=== PATIENT | female | born 2000 | race Hispanic/Latino ===

== ENCOUNTER 2018-03-19 18:16 | Day surgery (SDC) | payer MEDICAID, OTHER ==
[2018-03-19 18:41] LABS: Bilirubin Negative (Negative); Blood, Urine Negative (Negative); Clarity CLOUDY (Clear); Glucose, Urine (Dipstick) Negative (Negative); Leukocyte Negative (Negative); Nitrite Negative (Negative); Protein, Urine (Dipstick) Negative (Neg-Trace)
[2018-03-19 18:48] LABS: Specific Gravity, Urine 1.003 (1.002-1.036)
[2018-03-19 18:54] LABS: #Lymphocytes 0.6 thou/uL (1.20-3.40); #Monocytes 0.4 thou/uL (0.11-0.59); #Neutrophils 5.3 thou/uL (1.40-6.50); %Eosinophils 0.3 % (0.0-10.0); %Monocytes 5.7 % (0.0-4.0); %Neutrophils 85.1 % (31.0-61.0); Hemoglobin 11.7 g/dL (12.0-16.0); Mean Corpuscular HGB CONC 35.8 g/dL (32.0-36.0); Mean Corpuscular Hemoglobin 33.1 pg (25.0-35.0); Mean Corpuscular Volume 92.4 fL (78.0-98.0); Mean Platelet Volume 6.1 fL (7.4-10.4); Platelet Count 170 thou/uL (130-400); RBC Distribution Width 11.9 % (11.5-14.5); Red Blood Cell (RBC) Count 3.53 mill/uL (4.00-5.20); White Blood Cell (WBC) Count 6.2 thou/uL (4.8-10.8)
[2018-03-19 19:12] LABS: ALT (SGPT) 15 U/L (8-55); AST (SGOT) 26 U/L (5-34); Albumin 3.5 g/dL (3.5-5.0); Alkaline Phosphatase 95 U/L (40-150); Anion Gap 11 mmol/L (10-20); BUN (Urea Nitrogen) 4 mg/dL (7.0-18.7); Bilirubin, Total 0.9 mg/dL (0.2-1.2); Calc. Creatinine Clearance 0 mL/min (70-130); Calcium 9.4 mg/dL (7.8-10.44); Carbon Dioxide 23 mmol/L (22-29); Chloride 103 mmol/L (98-107); Estimated GFR-MDRD Greater than 90; Globulin 2.9 g/dL (2.4-3.5); Glucose 108 mg/dL (70-105); Lipase 17 U/L (8-78); Potassium 3.5 mmol/L (3.5-5.1); Protein, Total 6.4 g/dL (6.0-8.3); Sodium 133 mmol/L (136-145)
[2018-03-19 20:43] VITALS: BP 116/65; TEMP 101.8; BMI 23.1
[2018-03-19 22:30] LABS: FFN Internal QC Analyzer PASS (PASS); FFN Internal QC Cassette PASS (PASS); Fetal Fibronectin Negative (Negative)
[2018-03-19] MEDS ORDERED: Acetaminophen 325 MG TAB PO SCH (23:00)
--- NOTE | 2018-03-20 01:58 | PDOC.EVN ---
Addendum entered and electronically signed by Jessi Beaver MD 03/20/18 02:09: Agree with note below. Patient tolerated entire meal and was feeling much better and we will plan for close follow-up in clinic. Return precautions given. Original Note: Event Note - Event Note Event Note: Patient cervix rechecked at midnight, remained closed (closed/thick/high). NSTs were reassuring. Mom had eaten and was feeling better. Pt sent home with marley and will follow up with PCP (Dr. Kelly Zaidi) on Monday. Patient was discharged. <Hailey Lema - Last Filed: 03/20/18 01:55> - Event Note Event Note: Patient stable. Asymptomatic. Maternal vitals reviewed. FHT reassuring and reactive. No contractions. No evidence of labor. Received 2L. Tolerated meal. Follow up with PCP on Monday with Dr. Zaidi. Dominick <Lexie Méndez - Last Filed: 03/20/18 02:12>
== END 2018-03-20 00:30 | disposition home health service (06) ==
LOC: ERS 18:16 → L&D/OP 20:01
PROVIDERS: ATTEND Family Medicine
DX: O99.89 Other specified diseases and conditions complicating pregnancy, childbirth and the puerperium (principal); R19.7 Diarrhea, unspecified; R50.9 Fever, unspecified; R11.10 Vomiting, unspecified; Z3A.32 32 weeks gestation of pregnancy
CPT/HCPCS: 36415; 80053; 81003; 82731; 83630; 83690; 85025; 87045; 87046; 87081; 87449; 87899; 96360; 96361; 99283; 99284

== ENCOUNTER 2018-03-20 19:18 | Observation (INO) | payer OTHER ==
[2018-03-20 20:07] VITALS: BMI 23.6
[2018-03-20] MEDS ORDERED: Ondansetron HCl/PF 4 MG/2 ML Vial IVP PRN (20:12)
[2018-03-20] MEDS ORDERED: Acetaminophen 325 MG TAB PO PRN (20:12)
[2018-03-20] MEDS: Lactated Ringer's 1,000 ML IV SCH ×2 (20:29→21:04)
[2018-03-20] MEDS ORDERED: Acetaminophen 500 MG TAB PO SCH (20:30)
[2018-03-20 20:58] LABS: Bilirubin Negative (Negative); Blood, Urine Negative (Negative); Clarity CLEAR (Clear); Glucose, Urine (Dipstick) 100 mg/dL (Negative); Leukocyte Negative (Negative); Nitrite Negative (Negative); Protein, Urine (Dipstick) Negative (Neg-Trace); Specific Gravity, Urine 1.004 (1.002-1.036)
[2018-03-20 20:59] LABS: Bacteria/HPF None Seen HPF (None Seen); Hyaline Casts/LPF 0-3 HYALINE CAST LPF (0-3 Hyaline); RBC/HPF None Seen HPF (0-3); Squamous Epithelial 0-3 HPF (0-3); WBC/HPF None Seen HPF (0-3)
[2018-03-20 21:08] LABS: ALT (SGPT) 20 U/L (8-55); AST (SGOT) 33 U/L (5-34); Albumin 3.3 g/dL (3.5-5.0); Alkaline Phosphatase 92 U/L (40-150); Anion Gap 11 mmol/L (10-20); BUN (Urea Nitrogen) Less than 4 mg/dL (7.0-18.7); Bilirubin, Total 0.6 mg/dL (0.2-1.2); Calc. Creatinine Clearance 156 mL/min (70-130); Calcium 8.8 mg/dL (7.8-10.44); Carbon Dioxide 22 mmol/L (22-29); Chloride 107 mmol/L (98-107); Estimated GFR-MDRD Greater than 90; Globulin 2.3 g/dL (2.4-3.5); Glucose 94 mg/dL (70-105); Potassium 3.3 mmol/L (3.5-5.1); Protein, Total 5.6 g/dL (6.0-8.3); Sodium 137 mmol/L (136-145)
[2018-03-20] MEDS ORDERED: Lactated Ringer's 1,000 ML IV SCH ×2 (22:15)
--- NOTE | 2018-03-21 01:35 | PDOC.EVN ---
Event Note - Event Note Event Note: Mom is resting comfortably. Fever resolved, temperature now 97.8F. Maternal heart rate improved, now ranging from 102-108. FHR improved to 120s. Cat 1 tracing. On Maintenance fluids. Continuous FHTs reduced to intermittent monitoring. FHTs show baseline 120s, moderate variability, good accelerations, no decelerations. Cat 1 tracing. Vitals: T 97.8, BP 94/52, R 18, O2 100% on RA Labs K: 3.3 Ma.5 TSH: .9259 EKG: sinus tachycardia A&P: Viral vs Bacterial Gastroenteritis -Fever resolved to 97.8F with tylenol -Supportive therapy: currently on maintenance fluids LR @125 ml/hr -Regular Diet as tolerated -Final results of stool studies pending -Negative for shigella and campylobacter -Zofran PRN for nausea -Lactic acid ordered for morning labs -Morning BMP Hypokalemia -K: 3.3 -replace with KCl 20 mg PO bid Hypomagnesemia -ma.5 -replace with slow MagCl 64 mg PO bid Maternal Tachycardia - improved -HR in 120s, improved to 102-108. -EKG ordered- showed sinus tachycardia Tachycardia- resolved -FHR in 165 upon presentation, likely related to maternal gastroenteritis -Resolved with fluid resuscitation to Cat 1 tracing -Continuous FHTs reduced to intermittent monitoring R/o Labor -32wk 4d by 8.5 week US and LMP -intermittent nonpainful contractions - fibronectin negative (03/19/18) -(on 03/19/18 @ 2400) Cervix closed (closed/thick/high) sIUP @ 32.4 wks, MURRAY 05/12/18 -OB labs reviewed and within nl limits, apart from chlamydia earlier in (s/p LASHAWN) -continue iron for anemia of -obs <Hailey Lema - Last Filed: 03/21/18 02:23> Attending Addendum - Attending Addendum Date/Time: 03/20/18 7781 I personally evaluated the patient and discussed the management with Dr. Lema I agree with the History, Examination, Assessment and Plan documented above with any addition or exceptions noted below. ABrayMD <Lexie Méndez - Last Filed: 03/21/18 06:37>
--- NOTE | 2018-03-21 05:33 | PDOC.LDPN ---
Labor & Delivery Progress Note - Subjective Subjective: comfortable, no concerns, other (NAEO. Patient says she had one episode of diarrhea early this AM and was able to sleep through the night. Denies seeing any blood or mucus in her stool. Also denies any fever/chills, nausea or vomiting. Is tolerating water PO but still does not have much of an appetite.) - Objective Vital signs reviewed and normal: yes General: NAD (CV: tachycardiac w/ regular rate, no murmurs; respiratory: LCTAB; Abdomen: Gravid, nontender) Uterine fundus: non tender FHT: category 1, variability present Resuscitative measures: maternal IV fluids (LR @ 125mL/hr) -: A&P: 18YO @ 32.4 weeks who presented from clinic due to tachycardia & diarrhea x 1 day 2/2 viral vs. bacterial gastroenteritis. 1. Viral vs. bacterial gastroenteritis: - Still having episodes of diarrhea, less frequent though. - Will continue IV maintenance fluids w/ LR @ 125mL/hr & encourage PO hydration & regular diet as tolerated. - Stool studies neg for shigella or campylobacter, & prelim Cx neg. - Elevated fecal lactoferrin, E. coli ordered but not done. Will consider reordering this test. - Fever has resolved w/ tylenol, last recorded temp was 98.0F 2. Hypokalemia: - K of 3.3 on admission likely 2/2 GI losses from diarrhea - Repeat BMP at 0330 today still low @ 3.1 - Will start on oral replacement with PO KCl @ 40mEq with breakfast & lunch. - Will continue to monitor. 3. Hypomagnesemia: - Mg of 1.5 on presentation - Was given one dose of 64mg Mg PO but will start on IV Mg as patient is still having diarrhea. - Will continue to monitor. 4. Maternal tachycardia - slightly improved from admission - HR between 97 and 109 overnight - Will continue with IVFs and encourage increased PO intake as tolerated - Will continue to monitor 5. tachycardia - Resolved following maternal fluid resuscitation. - Will continue with intermittent monitoring with as last documented FHT was reassuring with baseline in 120s, moderate variability, good accels & no decels. 6. r/o labor - FFN neg on 03/19/18 - Cervix was closed, thick & high on 03/19/18 @ 2400 7. SIUP @ 32.4 weeks - h/o chlamydia in early that is s/p tx; all other labs were WNL - Will continue iron for anemia of <Aurora Bagley - Last Filed: 03/21/18 08:40> Attending Addendum - Attending Addendum Date/Time: 03/21/18 3924 I personally evaluated the patient and discussed the management with Dr. Bagley I agree with the History, Examination, Assessment and Plan documented above with any addition or exceptions noted below- Patient feeling better. No further N/V. One episode of diarrhea last night but overall much improved. Feels hungry. Afebrile VSS. A/P: 1) Gastroenteritis- improved. Will have patient eat breakfast and if tolerated meal, plan to d/c home. 2) Hypokalemia - potassium replaced today. Anticipate improvement once tolerating po. <Mariana Velasquez - Last Filed: 03/21/18 17:44>
[2018-03-21 05:52] LABS: Lactic Acid 0.6 mmol/L (0.5-2.2)
[2018-03-21 05:58] LABS: Anion Gap 6 mmol/L (10-20); BUN (Urea Nitrogen) Less than 4 mg/dL (7.0-18.7); Calc. Creatinine Clearance 150 mL/min (70-130); Calcium 8.4 mg/dL (7.8-10.44); Carbon Dioxide 26 mmol/L (22-29); Chloride 109 mmol/L (98-107); Estimated GFR-MDRD Greater than 90; Glucose 75 mg/dL (70-105); Potassium 3.1 mmol/L (3.5-5.1); Sodium 138 mmol/L (136-145)
[2018-03-21] MEDS ORDERED: Magnesium Chloride 64 MG TAB PO SCH (07:00)
[2018-03-21] MEDS ORDERED: Potassium Chloride 20 MEQ TAB PO SCH ×3 (08:00→12:00)
[2018-03-21] MEDS ORDERED: Magnesium 2 GM/NS 0.9% 50 ML 2 GM in Premix Bag 1 BAG IVPB SCH (08:45)
[2018-03-21] MEDS ORDERED: Magnesium Sulfate 2 GM in Sodium Chloride 0.9% 100 ML IVPB SCH (09:00)
[2018-03-21 14:51] VITALS: TEMP 98.2
--- NOTE | 2018-03-21 15:27 | EKG ---
Test Reason : Blood Pressure : / mmHG Vent. Rate : 117 BPM Atrial Rate : 117 BPM P-R Int : 152 ms QRS Dur : 086 ms QT Int : 312 ms P-R-T Axes : 031 042 017 degrees QTc Int : 435 ms Sinus tachycardia Otherwise normal ECG Confirmed by JADE SHARIF ([id number]) on 03/21/2018 3:27:25 PM Referred By: esau COTA Confirmed By:JADE SHARIF
[2018-03-21 15:38] VITALS: BP 92/62
--- NOTE | 2018-03-22 11:50 | DIS-2 ---
DATE OF ADMISSION: 03/20/2018 DATE OF DISCHARGE: 03/21/2018 RESIDENT: Aurora Bagley MD ADMITTING ATTENDING: Dr. Lexie Méndez. DISCHARGE ATTENDING: Dr. Mariana Velasquez. CONSULTATIONS: None. PROCEDURES: None. PRIMARY DIAGNOSES: 1. Gastroenteritis. 2. Dehydration during . 3. Hypokalemia. 4. Hypomagnesemia. 5. tachycardia. 6. Fever SECONDARY DIAGNOSES: . DISCHARGE MEDICATIONS: 1. vitamins. 2. Ondansetron HCL 4 mg p.o. q.4. hours p.r.n. #10. DISCONTINUED MEDICATIONS: None. HOSPITAL COURSE: Ms. Desouza is a 18-year-old G2, P0-0-1-0 at 32.3 weeks, who was sent over from clinic after being found to be tachycardic with a heart rate in the 140s with a heart rate in the 160-170 range. The tachycardia began after 3 days of fever, nausea, decreased PO intake, and watery diarrhea so the patient was sent to the hospital to be evaluated and treated for dehydration 2/ 2 gastroenteritis. On admission, the patient was found to have a low-grade temperature of 100.0F and was tachycardic with a HR of 120. She was given 1 liter of lactated Ringer's for volume resuscitation & started on LR at 125mL/ hr. After receiving adequate fluid resuscitation, the tachycardia resolved and an NST was reassuring with a baseline heart rate in the 120s with moderate variability, good accelerations and no decelerations. Significant labs on presentation included a K of 3.3 and a Mg of 1.5. Both were treated with 40 mEq of potassium PO and 64 mg of magnesium PO, respectively, prior to discharge. By the morning of discharge after being kept on IVFs overnight, the patient's fever and tachycardia resolved and she was able to tolerate food and liquids by mouth. After observing her for a few hours that morning she was cleared for discharge and instructed to follow up with her primary care physician within 1-2 days following discharge. DISPOSITION: Stable. DISCHARGE INSTRUCTIONS: 1. Location: Home. 2. Diet: Regular diet as tolerated. 3. Activity: As tolerated. No restrictions. 4. Followup: The patient was instructed to follow up with her primary care physician in clinic within 1-2 days following discharge. FRANCISCA
== END 2018-03-21 14:31 | disposition home health service (06) ==
LOC: L&D/OP 19:18 → L&D 20:14
PROVIDERS: ADMIT Student in an Organized Health Care Education/Training Program; ATTEND Student in an Organized Health Care Education/Training Program
DX: O99.613 Diseases of the digestive system complicating pregnancy, third trimester (principal); K52.9 Noninfective gastroenteritis and colitis, unspecified; O99.283 Endocrine, nutritional and metabolic diseases complicating pregnancy, third trimester; E83.42 Hypomagnesemia; O76 Abnormality in fetal heart rate and rhythm complicating labor and delivery; E86.0 Dehydration; E87.6 Hypokalemia; Z3A.32 32 weeks gestation of pregnancy
CPT/HCPCS: 36415; 51701; 80048; 80053; 81001; 83605; 83735; 84443; 93005; 93010; 96360; 96361; 99285; G0378; J3475; J7050

== ENCOUNTER 2018-05-16 03:46 | Inpatient (IN) | payer OTHER ==
[2018-05-16 04:10] VITALS: BMI 27.0
--- NOTE | 2018-05-16 05:15 | PDOC.FPROB ---
FMR OB H&P: HPI - History of Present Illness Chief Complaint: contractions History of Present Illness: 18 yo at 40.4w by LMP/8.5w sono here with cc of ctx since 0100. They were initially q10 min and are now q5. She is feeling baby move. Denies VB, LOF , discharge, dysuria. Primary Care Physician: Kelly Zaidi MD FMR OB H&P: Current - Care : 2 Para: 0 Gestational age: 40.4 Due date: 05/12/2018 Dating Criteria: LMP/8.5w sono Course/Complications: Anemia of , chlamydia s/p LASHAWN - OB Labs Blood type: O RH: positive Antibody Screen: negative HIV: negative RPR: negative HepBsAg: negative Rubella: immune Urine drug screen: negative Gonorrhea: negative Chlamydia: positive (LASHAWN negative) Pap Smear: not indicated 1 hour gtt: 72 GBS: negative - First Trimester Ultrasound First trimester: 8.5w - Anatomy Survey Anatomy survey: WNL, posterior placenta, outflow tracts not visualized FMR OB H&P: History - Past Medical History PMH: Anemia of Chlamydia s/p LASHAWN - OB History OB History: H/o SAB at 6 weeks - Surgical History Sx History: Appendectomy - Social History Social History: Denies tobacco, alcohol, drug use - Family History Family History: Dad: T2DM, HTN FMR OB H&P: Medications - Current Home Medications: Medication Instructions Recorded Confirmed Type Vitamin 1 tab DAILY 03/19/18 05/16/18 History Acetaminophen [Acetaminophen Oral 2.5 ml PO PRN PRN 03/20/18 05/16/18 History Solution] Ferrous Sulfate 1 tab PO DAILY 03/20/18 05/16/18 History Ondansetron HCl [Zofran] 4 mg PO Q4H PRN #10 tablet 03/21/18 05/16/18 Rx Allergies/Adverse Reactions: Allergies Allergy/AdvReac Type Severity Reaction Status Date / Time No Known Allergies Allergy Verified 03/20/18 20:01 FMR OB H&P: ROS - Review of Systems General: denies: fever/chills Eyes: denies: vision changes ENT: denies: nasal congestion, rhinorrhea Cardiovascular: denies: chest pain, palpitation Respiratory: denies: cough, congestion, shortness of breath Gastrointestinal: reports: abdominal pain, cramping Genitourinary (Female): denies: dysuria, hematuria Musculoskeletal: denies: pain, tenderness FMR OB H&P: Vital Signs - Maternal Vital signs: Vital Signs - First Documented Temp Pulse Resp BP 98.3 F 102 H 18 117/70 05/16/18 04:06 05/16/18 04:06 05/16/18 04:06 05/16/18 04:06 - Heart Tones Baseline: 125 Variability: moderate Acceleration: present Deceleration: absent Category: category 1 [place] contractions every: 2-4 minutes FMR OB H&P: Physical Exam - Physical Exam General: NAD, awake, alert and oriented HEENT: normocephalic and atraumatic Neck: supple Chest: non-tender to palpation Heart: RRR, normal S1/S2 General: CTAB Abdomen: soft, gravid, non-tender Skin: good tugor, capillary refill <2 seconds Psychiatric: intact recent and remote memory, normal mood and affect - Pelvic Exam Vulva: no masses SVE: 4/80/-2 Guthrie score: 8 Membranes: intact Presentation: vertex Estimated Weight: 7 lbs FMR OB H&P: A/P - Problem List (1) Term Current Visit: Yes Status: Acute Code(s): Z34.80 - ENCOUNTER FOR SUPRVSN OF NORMAL , UNSP TRIMESTER Disposition: 18 yo at 40.4w by LMP/8.5w sono here with contractions 1. sIUP, latent labor - Cervical change since yesterday - Latent labor at this time - Will recheck in 1 hour and if making cervical change, admit to L&D for expectant mgmt - Does not desire epidural but does desire IV pain medications 2. Anemia of - Last Hgb > 10 - On iron - Will check CBC on admission 3. Chlamydia in - s/p LASHAWN Will recheck in 1 hour Attending Addendum - Attending Addendum Date/Time: 05/16/18 0703 I personally evaluated the patient and discussed the management with Dr. Beaver. I agree with the History, Examination, Assessment and Plan documented above with any addition or exceptions noted below.
[2018-05-16] MEDS ORDERED: Ondansetron HCl/PF 4 MG/2 ML Vial IVP PRN ×2 (06:16→16:43)
[2018-05-16] MEDS ORDERED: Fentanyl 100 MCG/2 ML VIAL SLOW IVP PRN (06:16)
[2018-05-16] MEDS ORDERED: Promethazine HCl 25 MG/ML VIAL IM PRN (06:16)
--- NOTE | 2018-05-16 06:16 | PDOC.LDPN ---
Labor & Delivery Progress Note - Subjective Subjective: painful contractions - Objective Vital signs reviewed and normal: yes General: resting Uterine fundus: non tender Dilation: 5 Effacement: 90% Station: -2 [place] contractions every: 2-4 minutes - Assessment (1) Term Code(s): Z34.80 - ENCOUNTER FOR SUPRVSN OF NORMAL , UNSP TRIMESTER Current Visit: Yes Status: Acute -: Making cervical change. Will admit to L&D for expectant management.
[2018-05-16] MEDS: Lactated Ringer's 1,000 ML IV SCH ×2 (06:30→16:49)
[2018-05-16] MEDS ORDERED: Lactated Ringer's 1,000 ML IV SCH ×2 (06:30→13:30)
[2018-05-16] MEDS ORDERED: Lidocaine 1% (PF) 30 ML VIAL SC PRN (06:45)
[2018-05-16] MEDS ORDERED: NS / Oxytocin 40 units/1000ml 1,000 ML IV PRN (06:45)
[2018-05-16] MEDS: Butorphanol Tartrate 1 MG/ML VIAL SLOW IVP PRN ×3 (07:10→13:29)
[2018-05-16 07:33] LABS: Hemoglobin 13.1 g/dL (12.0-16.0); Mean Corpuscular HGB CONC 35.4 g/dL (32.0-36.0); Mean Corpuscular Hemoglobin 32.7 pg (25.0-35.0); Mean Corpuscular Volume 92.6 fL (78.0-98.0); Mean Platelet Volume 7.1 fL (7.4-10.4); Platelet Count 281 thou/uL (130-400); RBC Distribution Width 12.4 % (11.5-14.5); Red Blood Cell (RBC) Count 4.01 mill/uL (4.00-5.20); White Blood Cell (WBC) Count 12.7 thou/uL (4.8-10.8)
[2018-05-16 07:50] LABS: HBSAg Index 0.26 S/CO (0-0.99); Hep B Surf Ag Non-Reactive S/CO (NonReactive)
--- NOTE | 2018-05-16 08:19 | PDOC.LDPN ---
Labor & Delivery Progress Note - Subjective Subjective: comfortable, no concerns - Objective Vital signs reviewed and normal: yes General: NAD, resting, breathing through contractions Uterine fundus: non tender Dilation: 5 Effacement: 90% Station: 0 FHT: category 1, variability present [place] contractions every: every 3-6 min Resuscitative measures: maternal IV fluids - Assessment (1) Term Code(s): Z34.80 - ENCOUNTER FOR SUPRVSN OF NORMAL , UNSP TRIMESTER Current Visit: Yes Status: Acute (2) Anemia affecting Code(s): O99.019 - ANEMIA COMPLICATING , UNSPECIFIED TRIMESTER Current Visit: Yes Status: Acute Plan: continue plan of care -: This is a 18 yo at 40.4 wks by LMP/8.5w sono here with cc of ctx since 0100 found to be in labor. Term IUP - check @ 0815 is /0; will recheck in about 2 hours - CTX every 3-6min - Pt does not desire epidural at this time; stadol X 1 for pain - Will continue to monitor FHT - continue plan of care - Will consider AROM at next check if still intact Anemia of - Last Hgb > 10 - On iron - Will check CBC Chlamydia in - s/p LASHAWN Case discussed with Dr. Velasquez
--- NOTE | 2018-05-16 10:21 | PDOC.LDPN ---
Addendum entered and electronically signed by Clarita Mera MD 05/16/18 10:24 : Please addend cervical check to Original Note: Labor & Delivery Progress Note - Subjective Subjective: comfortable, no concerns - Objective Vital signs reviewed and normal: yes General: NAD, resting, breathing through contractions Uterine fundus: non tender Dilation: 6 Effacement: 90% Station: 0 FHT: category 1, variability present [place] contractions every: every 8 min AROM: clear fluid Resuscitative measures: maternal IV fluids - Assessment (1) Term Code(s): Z34.80 - ENCOUNTER FOR SUPRVSN OF NORMAL , UNSP TRIMESTER Current Visit: Yes Status: Acute (2) Anemia affecting Code(s): O99.019 - ANEMIA COMPLICATING , UNSPECIFIED TRIMESTER Current Visit: Yes Status: Acute Plan: continue plan of care -: This is a 18 yo at 40.4 wks by LMP/8.5w sono here with cc of ctx since 0100 found to be in labor. Term IUP - check @ 1015 is ; AROM'd this check; will recheck in about 2 hours - CTX q8hrs - Pt does not desire epidural at this time; stadol X 2 for pain - Will continue to monitor FHT - continue plan of care Anemia of - Hgb 13.1 on 05/16/18 - On iron - Will check hemogram after delivery Chlamydia in - s/p LASHAWN Case discussed with Dr. Velasquez
[2018-05-16] MEDS ORDERED: Misoprostol 200 MCG TAB ONE ×2 (12:34→12:38)
[2018-05-16] MEDS ORDERED: Carboprost 250 MCG/ML AMP ONE (12:37)
--- NOTE | 2018-05-16 13:04 | PDOC.OPDEL ---
OB Operative/Delivery Note Delivery Dr/Surgeon: Dyan Mera Lichorad Pre-Delivery Diagnosis: active labor Procedure/Post Delivery Dx: spontaneous vaginal delivery Weeks gestation: 40 (40.4) Anesthesia: none - Findings A Sex: female - 1 min: 8 - 5 min: 9 - Additional Findings/Plan Placenta delivered: spontaneous Repaired Obstetrical Laceration: 1st degree (hemostatic) Compilations/Other Findings: This is a 18 yo F @ 40.4 wks who delivered a viable F infant @ 1226 on . Following an uneventful antepartum course, a vigorous F was delivered over an intact perineum in the occiput anterior position. Anterior shoulder and then remainder of the body delivered. Nuchal cord X 1 and reduced after delivery. The head was held down and the mouth and nares were bulb suctioned. Cord clamped and cut and cord blood collected. Placenta delivered intact with a 3 vessel cord noted. Fundal massage was performed and fundus was firm. The patient continued having vaginal bleeding and bimanual massage was performed in the lower uterine segment was found to be boggy. The uterus was evacuated free of clots. The patient was given 600mcg of cytotec and 250mcg hemobate. After this the lower uterine segment became more firm and bleeding resolved. The cervix and vagina were inspected and found to have one labial 1st degree laceration that was hemostatic and did not require repair. in good condition and doing skin to skin with mom. APGARS were 8,9 at 1 & 5 minutes respectively. Patient tolerated delivery well. QBL: 1355 mL Post delivery plan: routine recovery <Clarita Mera - Last Filed: 05/16/18 13:01> Attending Addendum - Attending Addendum Date/Time: 05/16/18 1502 I was present and assisted Dr. Mckay with the of a viable female infant over an intact perineum. Apgars 8/9. [place] of the lower uterine segment was noted and bimanual massage was performed. Patient was also given hemobate 250 mcg IM and misoprostol 600 mcg PA. [place] imrpved and uterine tone became firmer. Smal 1* perineal and right labial lacerations noted but were hemostatic and no sutures were needed. QBL 1355 mL. Initial BP/pulse post delivery 100/60 and 133, respectively. Second IV started and 1L bolus of LR given. Plan to check H/H this evening. <Mariana Velasquez - Last Filed: 05/16/18 15:07>
[2018-05-16] MEDS ORDERED: Carboprost 250 MCG/ML AMP IM SCH (13:30)
[2018-05-16] MEDS ORDERED: Misoprostol 200 MCG TAB PR SCH (13:30)
[2018-05-16] MEDS ORDERED: Milk Of Magnesia 30 ML UDCUP PO PRN (16:43)
[2018-05-16] MEDS ORDERED: Bisacodyl 10 MG SUPP PR PRN (16:43)
[2018-05-16] MEDS ORDERED: Lanolin Ointment 7 GM TUBE TOP PRN (16:43)
[2018-05-16] MEDS ORDERED: NS / Oxytocin 40 units/1000ml 1,000 ML IV SCH (16:43)
[2018-05-16] MEDS: Ferrous Sulfate 325 MG TAB PO SCH (18:18)
[2018-05-16 20:20] LABS: #Lymphocytes 2.2 thou/uL (1.20-3.40); #Monocytes 0.9 thou/uL (0.11-0.59); #Neutrophils 11.9 thou/uL (1.40-6.50); %Basophils 0.1 % (0.0-1.0); %Eosinophils 0.1 % (0.0-10.0); %Lymphocytes 14.3 % (28.0-48.0); %Monocytes 6.1 % (0.0-4.0); %Neutrophils 79.5 % (31.0-61.0); Hemoglobin 9.1 g/dL (12.0-16.0); Mean Corpuscular HGB CONC 35.3 g/dL (32.0-36.0); Mean Corpuscular Hemoglobin 32.9 pg (25.0-35.0); Mean Corpuscular Volume 92.9 fL (78.0-98.0); Mean Platelet Volume 6.6 fL (7.4-10.4); Platelet Count 247 thou/uL (130-400); RBC Distribution Width 12.4 % (11.5-14.5); Red Blood Cell (RBC) Count 2.77 mill/uL (4.00-5.20)
[2018-05-16] MEDS: Docusate Calcium (SURFAK) 240 MG CAP PO SCH (21:26)
[2018-05-16] MEDS: Ibuprofen 800 MG TAB PO SCH (21:27)
[2018-05-17] MEDS: Ibuprofen 800 MG TAB PO SCH ×3 (05:11→17:20)
[2018-05-17 05:51] LABS: Hemoglobin 7.7 g/dL (12.0-16.0); Mean Corpuscular HGB CONC 35.2 g/dL (32.0-36.0); Mean Corpuscular Hemoglobin 32.8 pg (25.0-35.0); Mean Corpuscular Volume 93.3 fL (78.0-98.0); Mean Platelet Volume 6.4 fL (7.4-10.4); Platelet Count 222 thou/uL (130-400); RBC Distribution Width 12.4 % (11.5-14.5); Red Blood Cell (RBC) Count 2.36 mill/uL (4.00-5.20); White Blood Cell (WBC) Count 13.1 thou/uL (4.8-10.8)
--- NOTE | 2018-05-17 06:25 | PDOC.PP ---
Post Progress Note Post Day #: 1 Subjective: 18 y/o ->1 delivered via @ 40.4 WGA. Pt is doing well. She has been tolerating PO, ambulating and voiding without difficulty. She endorses flatus. She has been trying to breastfeed and reports that her daughter will latch, but doesn't stay latched well. She denies any dizziness, lightheadedness, palpitations. PO intake tolerated: yes Flatus: yes Ambulation: yes Vital Signs (12 hours) Temp Pulse Resp BP 05/17/18 05:13 98.1 F 113 H 18 97/49 L 05/17/18 00:00 98.1 F 114 H 16 95/52 L 05/16/18 20:00 99.9 F H 117 H 20 106/59 L Weight Weight 64.864 kg - Physical Examination General: NAD Cardiovascular: no m/r/g Deviation from normal: tachycardic Respiratory: clear to auscultation bilaterally, non-labored breathing Abdominal: + bowel sounds, lochia (minimal), no distention, appropriately TTP Fundus firm & at: 2 cm below the umbilicus Psychiatric: A&Ox3, normal affect Result Diagrams: 05/17/18 05:23 Additional Labs: Post Labs Blood Type O POSITIVE 05/16/18 06:45 Hep Bs Antigen Non-Reactive S/CO (NonReactive) 05/16/18 06:45 (1) Term delivered Code(s): O80 - ENCOUNTER FOR FULL-TERM UNCOMPLICATED DELIVERY Status: Acute Comment: 18 y/o ->1 delivered via @ 40.4 WGA -Continue routine post- care -Pain controlled with ibuprofen -Encourage breast feeding, will consult clinical documentation improvement specialist -Encourage ambulation -Plan for depo for contraception (2) hemorrhage Code(s): O72.1 - OTHER IMMEDIATE HEMORRHAGE Status: Acute Qualifiers: hemorrhage type: other immediate Qualified Code(s): O72.1 - Other immediate hemorrhage Comment: Patient developed post- hemorrhage due to lower uterine segment atony Hb this AM was 7.7, down from 13. Pt is tachycardic to the 110s, but her baseline has been low 100s. She denies any symptoms at this time. -Continue iron -Consider transfusion if needed (3) Anemia affecting Code(s): O99.019 - ANEMIA COMPLICATING , UNSPECIFIED TRIMESTER Status : Acute Qualifiers: Trimester: unspecified trimester Qualified Code(s): O99.019 - Anemia complicating , unspecified trimester Comment: Patient was anemic during , on iron. At the time of delivery her Hb was 13. She developed PPH and her Hb this AM was 7.7 -Continue iron -Docusate <Kelly Zaidi - Last Filed: 05/17/18 06:24> Vital Signs (12 hours) Temp Pulse Resp BP 05/17/18 08:01 98.1 F 93 14 05/17/18 07:30 98.1 F 93 14 107/57 L 05/17/18 05:13 98.1 F 113 H 18 97/49 L 05/17/18 00:00 98.1 F 114 H 16 95/52 L Weight Weight 64.864 kg Result Diagrams: 05/17/18 05:23 Additional Labs: Post Labs Blood Type O POSITIVE 05/16/18 06:45 Hep Bs Antigen Non-Reactive S/CO (NonReactive) 05/16/18 06:45 <Mariana Velasquez - Last Filed: 05/17/18 11:28> Attending Addendum - Attending Addendum Date/Time: 05/17/18 1120 I personally evaluated the patient and discussed the management with Dr. Zaidi I agree with the History, Examination, Assessment and Plan documented above with any addition or exceptions noted below- Patient without complaints. Tolerating po. Ambulating without difficulty. Denies any dizziness. Afebrile VSS. A/P: PPD#1 s/p - continue routine care. 2) PPH secondary to atony- minimal bleeding overnight. 3) Blood loss anemia secondary to PPH- asymptomatic ; continue to monitor. Continue BID iron. <Mariana Velasquez - Last Filed: 05/17/18 11:28>
[2018-05-17] MEDS: Docusate Calcium (SURFAK) 240 MG CAP PO SCH (09:17)
[2018-05-17] MEDS: Ferrous Sulfate 325 MG TAB PO SCH ×2 (09:17→17:21)
[2018-05-18] MEDS: Docusate Calcium (SURFAK) 240 MG CAP PO SCH ×2 (00:22→09:11)
[2018-05-18] MEDS: Ibuprofen 800 MG TAB PO SCH ×2 (00:22→09:11)
[2018-05-18 05:38] LABS: Hemoglobin 7.5 g/dL (12.0-16.0)
--- NOTE | 2018-05-18 06:41 | PDOC.PP ---
Post Progress Note Post Day #: 2 Subjective: Patient doing well. She reports her pain is well controlled. Is ambulating, passing flatus, voiding without difficulty. She reports minimal lochia. She denies any chest pain, SOB, lightheadedness, palpitations. She has been trying to breast feed and reports that the agricultural extension specialist helped. PO intake tolerated: yes Flatus: yes Ambulation: yes Vital Signs (12 hours) Temp Pulse Resp BP 05/17/18 20:00 97.8 F 109 H 16 109/66 Weight Weight 64.864 kg - Physical Examination General: NAD Cardiovascular: no m/r/g Deviation from normal: tachycardic Respiratory: clear to auscultation bilaterally, non-labored breathing Abdominal: + bowel sounds, lochia (minimal), no distention, appropriately TTP Fundus firm & at: 3 cm below the umbilicus Neurological: no gross focal deficits Psychiatric: A&Ox3, normal affect Result Diagrams: 05/18/18 05:18 Additional Labs: Post Labs Blood Type O POSITIVE 05/16/18 06:45 Hep Bs Antigen Non-Reactive S/CO (NonReactive) 05/16/18 06:45 (1) Term delivered Code(s): O80 - ENCOUNTER FOR FULL-TERM UNCOMPLICATED DELIVERY Status: Acute Comment: 18 y/o ->1 delivered via @ 40.4 WGA -Continue routine post- care -Pain controlled with ibuprofen -Encourage breast feeding -Encourage ambulation -Plan for depo for contraception (2) hemorrhage Code(s): O72.1 - OTHER IMMEDIATE HEMORRHAGE Status: Acute Qualifiers: hemorrhage type: other immediate Qualified Code(s): O72.1 - Other immediate hemorrhage Comment: Patient developed post- hemorrhage due to lower uterine segment atony Hb 13->7.7->7.5 Pt is tachycardic to the high 100s, but her baseline has been low 100s. She denies any symptoms at this time. -Continue iron -Consider transfusion if needed -Will recheck CBC at post- visit (3) Anemia affecting Code(s): O99.019 - ANEMIA COMPLICATING , UNSPECIFIED TRIMESTER Status : Acute Qualifiers: Trimester: unspecified trimester Qualified Code(s): O99.019 - Anemia complicating , unspecified trimester Comment: Patient was anemic during , on iron. At the time of delivery her Hb was 13. She developed PPH and her Hb this AM was 7.5 -Continue iron -Docusate - Assessment/Plan d/c home today <Kelly Zaidi - Last Filed: 05/18/18 06:39> Vital Signs (12 hours) Temp Pulse Resp BP 05/18/18 08:00 98.1 F 101 H 20 101/61 05/18/18 07:57 98.1 F 101 H 20 Weight Weight 64.864 kg Result Diagrams: 05/18/18 05:18 Additional Labs: Post Labs Blood Type O POSITIVE 05/16/18 06:45 Hep Bs Antigen Non-Reactive S/CO (NonReactive) 05/16/18 06:45 <Mariana Velasquez - Last Filed: 05/18/18 13:39> Attending Addendum - Attending Addendum Date/Time: 05/18/18 7494 I personally evaluated the patient and discussed the management with Dr. Zaidi I agree with the History, Examination, Assessment and Plan documented above with any addition or exceptions noted below- Patient without complaints. Ambulating without difficulty. Denies any dizziness. Afebrile VSS A/P: 1) PPD#2 s/p - doing well. Plan to d/c home today. 2) Anemia-stable; continue oral iron. <Mariana Velasquez - Last Filed: 05/18/18 13:39>
[2018-05-18 08:17] VITALS: BP 101/61; TEMP 98.1
[2018-05-18] MEDS: Ferrous Sulfate 325 MG TAB PO SCH (09:11)
== END 2018-05-18 11:45 | disposition home or self-care (01) | DRG 775 ==
LOC: L&D/OP 03:46 → L&D 07:50 → 3SW 15:40
PROVIDERS: ADMIT Family Medicine; ATTEND Family Medicine
PROC: 10E0XZZ Delivery of Products of Conception, External Approach (ICD-10-PCS; principal; 2018-05-16)
PROC: 4A0HXCZ Measurement of Products of Conception, Cardiac Rate, External Approach (ICD-10-PCS; 2018-05-16)
DX: O48.0 Post-term pregnancy (principal); O70.0 First degree perineal laceration during delivery; Z3A.40 40 weeks gestation of pregnancy; O69.81X0 Labor and delivery complicated by cord around neck, without compression, not applicable or unspecified; O75.89 Other specified complications of labor and delivery; O99.02 Anemia complicating childbirth; D64.9 Anemia, unspecified; Z37.0 Single live birth
CPT/HCPCS: 36415; 85014; 85018; 85027; 86850; 86900; 86901; 87340; 99285; J0595; J2001; J3010; J3490

== ENCOUNTER 2021-03-05 23:02 | Emergency (ER) | payer OTHER | END 2021-03-06 00:28 | disposition home or self-care (01) | LOC: ERS 23:02 | DX: T63.511A Toxic effect of contact with stingray, accidental (unintentional), initial encounter (principal); L03.116 Cellulitis of left lower limb | CPT/HCPCS: 99283 ==